=== PATIENT | female | born 1990 ===

== ENCOUNTER 2016-11-05 14:39 | Emergency (ER) | payer MEDICAID ==
--- NOTE | 2016-11-05 14:45 | ED PDOC ---
HPI: Female Pain Chief Complaint (Provider): , spotting History Per: Patient, Family (Patient's mother is at bedside and is translating for patient in Maltese.) Additional Complaint(s): 26-year-old female approximately 4 weeks presents to emergency department with vaginal spotting that started yesterday. Patient's last menstrual period was at the end of September and patient took a test at home 3 weeks ago and it was positive. Patient denies abdominal pain, dysuria, fever or chills. Patient is . <Mary Merritt - Last Filed: 11/05/16 17:22> <Alexx Morrell - Last Filed: 11/07/16 09:36> Time Seen by Provider: 11/05/16 14:45 Past Medical History Reviewed: Historical Data, Nursing Documentation, Vital Signs - Medical History PMH: No Chronic Diseases - Surgical History Surgical History: No Surg Hx - Family History Family History: States: No Known Family Hx - Living Arrangements Living Arrangements: With Family - Social History Current smoker - smoking cessation education provided: No Alcohol: None Drugs: Denies <Mary Merritt - Last Filed: 11/05/16 17:22> Vital Signs: Last Vital Signs Temp 98.9 F 11/05/16 14:45 Pulse 94 H 11/05/16 17:23 Resp 18 11/05/16 14:45 BP 140/83 11/05/16 14:45 Pulse Ox 100 11/05/16 17:23 <Alexx Morrell - Last Filed: 11/07/16 09:36> - Home Medications Home Medications: Ambulatory Orders Medication Instructions Recorded Nitrofurantoin Macrocrystals 100 mg PO BID #14 cap 11/05/16 [Macrobid] Comb No.42/Folic Acid 1 tab PO DAILY #60 tab 11/05/16 [Prena1 Chew] - Allergies Allergies/Adverse Reactions: Allergies Allergy/AdvReac Type Severity Reaction Status Date / Time No Known Allergies Allergy Verified 11/05/16 14:47 Review of Systems ROS Statement: Except As Marked, All Systems Reviewed And Found Negative Constitutional: Negative for: Fever Gastrointestinal: Positive for: Abdominal Pain Genitourinary Female: Positive for: Vaginal Bleeding (spotting). Negative for: Dysuria, Frequency, Incontinence <Mary Merritt - Last Filed: 11/05/16 17:22> Physical Exam - Reviewed Nursing Documentation Reviewed: Yes Vital Signs Reviewed: Yes - Physical Exam Appears: Positive for: Well, Non-toxic, No Acute Distress Skin: Negative for: Rash Eye Exam: Positive for: Normal appearance Cardiovascular/Chest: Positive for: Regular Rate, Rhythm Respiratory: Positive for: Normal Breath Sounds Gastrointestinal/Abdominal: Positive for: Soft. Negative for: Tenderness, Distended, Guarding, Rebound Extremity: Positive for: Normal ROM Neurologic/Psych: Positive for: Alert, Oriented <RadhaepifanioMary - Last Filed: 11/05/16 17:22> - Laboratory Results Result Diagrams: 11/05/16 15:14 11/05/16 15:14 Urine dip results: Positive for: Leukocyte Esterase (small), Blood (large) - ECG O2 Sat by Pulse Oximetry: 100 Pulse Ox Interpretation: Normal - Other Rad OB TV US X-Ray: Read By Radiologist X-Ray Interpretation: see below <Mary Merritt - Last Filed: 11/05/16 17:22> - Laboratory Results Result Diagrams: 11/05/16 15:14 11/05/16 15:14 <Alexx Morrell - Last Filed: 11/07/16 09:36> Medical Decision Making Medical Decision Makin-year-old female with spotting. Plan: test Urine dip Transvaginal ultrasound CBC CMP Beta Quant Type and screen/blood type Blood type is O positive US: Impression: Intrauterine gestational sac with pole measuring 0.62 centimeter corresponding to gestational age of 6 weeks 3 days. cardiac motion identified, beats per minute: 127. Nonspecific 1 centimeter echogenic focus seen in the left ovary, which otherwise appears unremarkable. Right ovary unremarkable. Close interval follow-up recommended. Patient aware of all diagnostic testing results. All questions answered. UTI is noted. Prescription given for Macrobid and vitamins. Patient was referred to women's clinic for follow-up. <Mary Merritt - Last Filed: 11/05/16 17:22> Disposition - Patient ED Disposition Is Patient to be Admitted: No Counseled Patient/Family Regarding: Studies Performed, Diagnosis, Need For Followup, Rx Given - Disposition Disposition: Routine/Home Disposition Time: 17:14 <Mary Merritt - Last Filed: 11/05/16 17:22> <Alexx Morrell - Last Filed: 11/07/16 09:36> - Clinical Impression Clinical Impression: Urinary tract infection, Threatened - Disposition Referrals: [facility] [Outside] Condition: STABLE Additional Instructions: T prescription meds as directed. Call women's clinic to arrange for follow-up visit in 2-3 days. Return to ED at any time if acutely worse. Prescriptions: Nitrofurantoin Macrocrystals [Macrobid] 100 mg PO BID #14 cap Comb No.42/Folic Acid [Prena1 Chew] 1 tab PO DAILY #60 tab Instructions: Threatened Miscarriage (ED), Urinary Tract Infection in (ED) Print Language: LATVIAN Results - Lab Results Lab Results: 11/05/16 11/05/16 11/05/16 16:24 15:14 15:14 WBC 8.1 RBC 4.73 Hgb 13.6 Hct 39.7 MCV 83.9 MCH 28.9 MCHC 34.4 RDW 13.3 Plt Count 266 MPV 9.4 Neut % (Auto) 64.1 Lymph % (Auto) 27.2 Mclean % (Auto) 6.8 Eos % (Auto) 1.3 Baso % (Auto) 0.6 Neut # 5.2 Lymph # 2.2 Mclean # 0.6 Eos # 0.1 Baso # 0.1 Sodium 136 Potassium 4.0 Chloride 104 Carbon Dioxide 23 Anion Gap 13 BUN 11 Creatinine 0.6 L Est GFR ( Amer) > 60 Est GFR (Non-Af Amer) > 60 Random Glucose 90 Calcium 9.2 Total Bilirubin 0.5 AST 36 ALT 49 Alkaline Phosphatase 65 Total Protein 8.1 Albumin 4.4 Globulin 3.7 Albumin/Globulin Ratio 1.2 Beta HCG, Quant 27182.00 Urine Color Red Urine Clarity Slighty-cloudy Urine pH 7.0 Ur Specific [place] < 1.005 Urine Protein 30 Urine Glucose (UA) Neg Urine Ketones Negative Urine Blood Large Urine Nitrate Negative Urine Bilirubin Negative Urine Urobilinogen 0.2-1.0 Ur Leukocyte Esterase Mod Urine RBC (Auto) 9 H Urine Microscopic WBC 21 H Ur Squamous Epith Cells 6 H Amorphous Sediment Few H Urine Bacteria Occ H Blood Type Antibody Screen BBK History Checked 11/05/16 15:14 WBC RBC Hgb Hct MCV MCH MCHC RDW Plt Count MPV Neut % (Auto) Lymph % (Auto) Mclean % (Auto) Eos % (Auto) Baso % (Auto) Neut # Lymph # [place]clean # Eos # Baso # Sodium Potassium Chloride Carbon Dioxide Anion Gap BUN Creatinine Est GFR ( Amer) Est GFR (Non-Af Amer) Random Glucose Calcium Total Bilirubin AST ALT Alkaline Phosphatase Total Protein Albumin Globulin Albumin/Globulin Ratio Beta HCG, Quant Urine Color Urine Clarity Urine pH Ur Specific [place] Urine Protein Urine Glucose (UA) Urine Ketones Urine Blood Urine Nitrate Urine Bilirubin Urine Urobilinogen Ur Leukocyte Esterase Urine RBC (Auto) Urine Microscopic WBC Ur Squamous Epith Cells Amorphous Sediment Urine Bacteria Blood Type O POSITIVE Antibody Screen Negative BBK History Checked No verified bt <Mary Merritt - Last Filed: 11/05/16 17:22> - Lab Results Lab Results: 11/05/16 11/05/16 11/05/16 16:24 15:50 15:14 WBC 8.1 RBC 4.73 Hgb 13.6 Hct 39.7 MCV 83.9 MCH 28.9 MCHC 34.4 RDW 13.3 Plt Count 266 MPV 9.4 Neut % (Auto) 64.1 Lymph % (Auto) 27.2 Mclean % (Auto) 6.8 Eos % (Auto) 1.3 Baso % (Auto) 0.6 Neut # 5.2 Lymph # 2.2 Mclean # 0.6 Eos # 0.1 Baso # 0.1 Sodium Potassium Chloride Carbon Dioxide Anion Gap BUN Creatinine Est GFR ( Amer) Est GFR (Non-Af Amer) Random Glucose Calcium Total Bilirubin AST ALT Alkaline Phosphatase Total Protein Albumin Globulin Albumin/Globulin Ratio Beta HCG, Quant Urine Color Red Urine Clarity Slighty-cloudy Urine pH 7.0 Ur Specific [place] < 1.005 Urine Protein 30 Urine Glucose (UA) Neg Urine Ketones Negative Urine Blood Large Urine Nitrate Negative Urine Bilirubin Negative Urine Urobilinogen 0.2-1.0 Ur Leukocyte Esterase Mod Urine RBC (Auto) 9 H Urine Microscopic WBC 21 H Ur Squamous Epith Cells 6 H Amorphous Sediment Few H Urine Bacteria Occ H Blood Type Blood Type Confirm O POSITIVE Antibody Screen BBK History Checked 11/05/16 11/05/16 15:14 15:14 WBC RBC Hgb Hct MCV MCH MCHC RDW Plt Count MPV Neut % (Auto) Lymph % (Auto) Mclean % (Auto) Eos % (Auto) Baso % (Auto) Neut # Lymph # [place]clean # Eos # Baso # Sodium 136 Potassium 4.0 Chloride 104 Carbon Dioxide 23 Anion Gap 13 BUN 11 Creatinine 0.6 L Est GFR ( Amer) > 60 Est GFR (Non-Af Amer) > 60 Random Glucose 90 Calcium 9.2 Total Bilirubin 0.5 AST 36 ALT 49 Alkaline Phosphatase 65 Total Protein 8.1 Albumin 4.4 Globulin 3.7 Albumin/Globulin Ratio 1.2 Beta HCG, Quant 95064.00 Urine Color Urine Clarity Urine pH Ur Specific [place] Urine Protein Urine Glucose (UA) Urine Ketones Urine Blood Urine Nitrate Urine Bilirubin Urine Urobilinogen Ur Leukocyte Esterase Urine RBC (Auto) Urine Microscopic WBC Ur Squamous Epith Cells Amorphous Sediment Urine Bacteria Blood Type O POSITIVE Blood Type Confirm Antibody Screen Negative BBK History Checked No verified bt <Alexx Morrell M - Last Filed: 11/07/16 09:36>
[2016-11-05 14:47] VITALS: BP 140/83; RESP 18; TEMP 98.9; O2SAT 100
[2016-11-05 15:26] LABS: BASO # 0.1 K/uL (0.0-0.2); BASO % 0.6 % (0.0-2.0); EOS # 0.1 K/uL (0.0-0.7); EOS % 1.3 % (0.0-4.0); HEMOGLOBIN 13.6 g/dL (12.0-16.0); LYMPH # 2.2 K/uL (1.0-4.3); LYMPH % 27.2 % (20.0-40.0); MEAN CELL VOLUME 83.9 fl (81.0-99.0); MEAN CORPUSCULAR HEMOGLOBIN 28.9 pg (27.0-31.0); MEAN CORPUSCULAR HGB CONC 34.4 g/dL (33.0-37.0); MEAN PLATELET VOLUME 9.4 fl (7.2-11.7); MONO # 0.6 K/uL (0.0-0.8); MONO % 6.8 % (0.0-10.0); NEUT # 5.2 K/uL (1.8-7.0); NEUT % 64.1 % (50.0-75.0); NRBC % 0.1 % (0.0-0.0); RBC 4.73 Mil/uL (3.80-5.20); RED CELL DISTRIBUTION WIDTH 13.3 % (11.5-14.5); WHITE BLOOD COUNT 8.1 K/uL (4.8-10.8)
[2016-11-05 15:37] LABS: ALB/GLOB RATIO 1.2 (1.0-2.1); ALBUMIN 4.4 g/dL (3.5-5.0); ALT/SGPT 49 U/L (9-52); AST/SGOT 36 U/L (14-36); BLOOD UREA NITROGEN 11 mg/dl (7-17); CALCIUM 9.2 mg/dL (8.4-10.2); GFR AFRICAN-AMERICAN > 60; GFR NON-AFRICAN AMERICAN > 60
--- NOTE | 2016-11-05 16:36 | US ---
Pelvic ultrasound History: Bleeding for 2 days. Findings: The uterus is anteverted and measures 8 x 6 x 4.4 centimeters. The cervix is closed and measures 3.6 centimeters. No cervical abnormality. Single intrauterine gestational sac with mean sac diameter of 1.6 centimeters noted. This corresponds to gestational age of 5 weeks 6 days. Yolk sac is identified measuring approximately 3-4 millimeter. No pole measuring 0.62 centimeters noted. According to the pole length, gestational age is 6 weeks 3 days. cardiac motion is seen. On M-mode imaging beats per minute: 127. Both ovaries are identified. Echogenic focus in the left ovary. This is a nonspecific finding. Doppler flow seen in both ovaries. No significant free fluid in the cul-de-sac. Impression: Intrauterine gestational sac with pole measuring 0.62 centimeter corresponding to gestational age of 6 weeks 3 days. cardiac motion identified, beats per minute: 127. Nonspecific 1 centimeter echogenic focus seen in the left ovary, which otherwise appears unremarkable. Right ovary unremarkable. Close interval follow-up recommended.
[2016-11-05 16:37] LABS: SQUAMOUS EPITHIAL 6 /hpf (0-5); URINE AMORPHOUS SEDIMENT FEW /ul (<OCC); URINE BACTERIA OCC (<OCC); URINE BILIRUBIN NEGATIVE (NEGATIVE); URINE BLOOD LARGE (NEGATIVE); URINE CLARITY SLIGHTY-CLOUDY (Clear); URINE COLOR RED (YELLOW); URINE GLUCOSE (UA) NEG (Normal); URINE LEUKOCYTE ESTERASE MOD Leu/uL (Negative); URINE NITRATE NEGATIVE (NEGATIVE); URINE PROTEIN 30 mg/dL (NEGATIVE); URINE UROBILINOGEN 0.2-1.0 mg/dL (0.2-1.0)
[2016-11-05 17:24] VITALS: PULSE 94
== END 2016-11-05 17:23 | disposition home or self-care (01) ==
LOC: H.ER 14:39
DX: O23.41 Unspecified infection of urinary tract in pregnancy, first trimester (principal); O20.0 Threatened abortion; Z3A.01 Less than 8 weeks gestation of pregnancy

== ENCOUNTER 2016-11-10 20:19 | Emergency (ER) | payer MEDICAID ==
[2016-11-10 20:27] VITALS: BP 148/79; PULSE 135; RESP 18; TEMP 99.4; O2SAT 98
--- NOTE | 2016-11-10 20:42 | ED PDOC ---
HPI: Female Pain Time Seen by Provider: 11/10/16 20:32 Chief Complaint (Nursing): Female Genitourinary Chief Complaint (Provider): vaginal bleeding History Per: Patient Additional Complaint(s): Pt is a 26 yo female, , no PMH, presents to ED with complaints of vaginal bleeding. No abdominal pain. Pt has been seen for the similar issue and has been spotting, but today she reports passing clots. Past Medical History Reviewed: Nursing Documentation, Vital Signs Vital Signs: Last Vital Signs Temp 99.4 F 11/10/16 20:24 Pulse 135 H 11/10/16 20:24 Resp 18 11/10/16 20:24 BP 148/79 11/10/16 20:24 Pulse Ox 98 11/10/16 20:24 - Medical History PMH: No Chronic Diseases - Family History Family History: States: No Known Family Hx - Home Medications Home Medications: Ambulatory Orders Medication Instructions Recorded Nitrofurantoin Macrocrystals 100 mg PO BID #14 cap 11/05/16 [Macrobid] Comb No.42/Folic Acid 1 tab PO DAILY #60 tab 11/05/16 [Prena1 Chew] Nitrofurantoin Macrocrystals 100 mg PO BID #10 cap 11/11/16 [Macrobid] - Allergies Allergies/Adverse Reactions: Allergies Allergy/AdvReac Type Severity Reaction Status Date / Time No Known Allergies Allergy Verified 11/05/16 14:47 Review of Systems ROS Statement: Except As Marked, All Systems Reviewed And Found Negative Genitourinary Female: Positive for: Vaginal Bleeding Physical Exam - Reviewed Nursing Documentation Reviewed: Yes Vital Signs Reviewed: Yes - Physical Exam Appears: Positive for: Well, Non-toxic, No Acute Distress Head Exam: Positive for: ATRAUMATIC, NORMAL INSPECTION, NORMOCEPHALIC Skin: Positive for: Normal Color, Warm, DRY Eye Exam: Positive for: EOMI, Normal appearance, PERRL ENT: Positive for: Normal ENT Inspection Neck: Positive for: Normal, Painless ROM Cardiovascular/Chest: Positive for: Regular Rate, Rhythm Respiratory: Positive for: CNT, Normal Breath Sounds Gastrointestinal/Abdominal: Positive for: Normal Exam, Bowel Sounds, Soft Pelvic Exam: Positive for: External Exam Normal, Active Bleeding (minimal at this time) Back: Positive for: Normal Inspection Extremity: Positive for: Normal ROM Neurologic/Psych: Positive for: Alert, Oriented - Laboratory Results Result Diagrams: 11/10/16 21:00 - ECG O2 Sat by Pulse Oximetry: 98 Medical Decision Making Medical Decision Making: UA resulted with WBC of 28, (+) Blood. Pt reports she is cirrently on Macrobid for UTI from her OB CBC WNL Beta [id number] TECHNIQUE: Real-time transvaginal obstetrical ultrasound of the maternal pelvis and a first trimester with image documentation. Transvaginal imaging was used for better evaluation of the fetus and adnexa. COMPARISON: No relevant prior studies available. FINDINGS: Gestation: There is a small irregular shaped fluid collection within the endometrium. No normal appearing gestational sac is found. The finding is compatible with in progress. Uterus/cervix: No masses identified. Ovaries: No visualized. Prominent bowel loops in both adnexal regions. Free fluid: No free fluid. IMPRESSION: 1. There is a small irregular shaped fluid collection within the endometrium. No normal appearing gestational sac is found. The finding is compatible with in progress. 2. Additional incidental and/or chronic findings as described. Pt educated on results and demonstrated full understanding. Pt visibly upset, consoled by her . All questions answered by financial underwriter. Pt reports she would like to go home and follow up with INVENT[facility] CONTROL COORDINATOR Stable for discharge at this time. pt educated that cramping and bleeding might likely increase in next few days. Advised to return to ED if at anytime condition worsens Disposition - Clinical Impression Clinical Impression: Urinary tract infection, Spontaneous - Patient ED Disposition Is Patient to be Admitted: No - Disposition Referrals: [facility] [Outside] Disposition: Routine/Home Disposition Time: 00:00 Condition: STABLE Prescriptions: Nitrofurantoin Macrocrystals [Macrobid] 100 mg PO BID #10 cap Instructions: Spontaneous Miscarriage (ED), Urinary Tract Infection in Women ( ED) Print Language: LAO - POA Present On Arrival: None
[2016-11-10 21:15] LABS: BASO % 0.4 % (0.0-2.0); EOS # 0.1 K/uL (0.0-0.7); EOS % 1.3 % (0.0-4.0); HEMOGLOBIN 13.3 g/dL (12.0-16.0); LYMPH # 2.3 K/uL (1.0-4.3); LYMPH % 25.1 % (20.0-40.0); MEAN CELL VOLUME 85.6 fl (81.0-99.0); MEAN CORPUSCULAR HEMOGLOBIN 28.5 pg (27.0-31.0); MEAN CORPUSCULAR HGB CONC 33.3 g/dL (33.0-37.0); MONO # 0.3 K/uL (0.0-0.8); MONO % 3.6 % (0.0-10.0); NEUT # 6.5 K/uL (1.8-7.0); NEUT % 69.6 % (50.0-75.0); NRBC % 0.1 % (0.0-0.0); RBC 4.65 Mil/uL (3.80-5.20); WHITE BLOOD COUNT 9.3 K/uL (4.8-10.8)
[2016-11-10 22:17] LABS: SQUAMOUS EPITHIAL 1 /hpf (0-5); URINE BILIRUBIN NEGATIVE (NEGATIVE); URINE BLOOD LARGE (NEGATIVE); URINE CLARITY SLIGHTY-CLOUDY (Clear); URINE COLOR YELLOW (YELLOW); URINE GLUCOSE (UA) NEG (Normal); URINE LEUKOCYTE ESTERASE NEG Leu/uL (Negative); URINE NITRATE NEGATIVE (NEGATIVE); URINE PROTEIN 100 mg/dL (NEGATIVE); URINE UROBILINOGEN 0.2-1.0 mg/dL (0.2-1.0)
--- NOTE | 2016-11-11 01:32 | US ---
EXAM: US , Transvaginal CLINICAL HISTORY: 26 years old, female; Signs and symptoms; Lmp or gestational age (in weeks): Lmp 09/08/2016; Other: Heavy bleeding; ; Additional info: 7 weeks increased bleeding over 2 days TECHNIQUE: Real-time transvaginal obstetrical ultrasound of the maternal pelvis and a first trimester with image documentation. Transvaginal imaging was used for better evaluation of the fetus and adnexa. COMPARISON: No relevant prior studies available. FINDINGS: Gestation: There is a small irregular shaped fluid collection within the endometrium. No normal appearing gestational sac is found. The finding is compatible with in progress. Uterus/cervix: No masses identified. Ovaries: No visualized. Prominent bowel loops in both adnexal regions. Free fluid: No free fluid. IMPRESSION: 1. There is a small irregular shaped fluid collection within the endometrium. No normal appearing gestational sac is found. The finding is compatible with in progress. 2. Additional incidental and/or chronic findings as described.
== END 2016-11-11 02:07 | disposition home or self-care (01) ==
LOC: H.ER 20:19
DX: O03.88 Urinary tract infection following complete or unspecified spontaneous abortion (principal); Z3A.01 Less than 8 weeks gestation of pregnancy